=== PATIENT | female | born 2000 | race African-American/Black ===

== ENCOUNTER 2022-06-12 17:25 | Emergency (ER) | payer BC ==
[2022-06-12 18:34] LABS: #Eosinphils 0.1 10x3/uL (0.0-0.5); #Monocytes 0.7 10x3/uL (0.0-1.1); #Neutrophils 4.2 10x3/uL (1.5-8.4); %Basophils 0.3 % (0.0-2.0); %Eosinophils 1.7 % (0.0-6.0); %Lymphocytes 29.5 % (18.0-47.0); %Monocytes 10.3 % (0.0-10.0); %Neutrophils 57.9 % (40.0-75.0); Hemoglobin 11.9 g/dL (12.0-15.5); Mean Corpuscular HGB CONC 34.2 g/dL (32.0-36.0); Mean Corpuscular Hemoglobin 31.1 pg (27.0-33.0); Mean Corpuscular Volume 90.9 fl (81.6-98.3); Mean Platelet Volume 10.4 fl (7.4-10.4); Platelet Count 294 10x3/uL (150-450); RBC Distribution Width 13.6 % (11.5-14.5); Red Blood Cell (RBC) Count 3.83 10x6/uL (3.90-5.03); White Blood Cell (WBC) Count 7.2 10x3/uL (3.5-10.5)
[2022-06-12 18:35] LABS: Bilirubin Neg (Negative); Blood, Urine Negative (Negative); Clarity Clear (Clear); Glucose, Urine (Dipstick) Normal (Negative); Ketone, Urine Negative (Negative); Leukocyte 25 (Negative); Nitrite Negative (Negative); Protein, Urine (Dipstick) Negative (Neg-Trace); Urobilinogen Normal mg/dL (Less than 2)
[2022-06-12 18:36] LABS: Pregnancy Test - Urine (BHCG) Negative (Negative); Pregu Control Background? CLEAR/WHITE (CLR/WHITE); Pregu Control Bar Appear? YES (CONTROL BAR)
[2022-06-12 18:51] LABS: ALT (SGPT) 12 U/L (8-55); AST (SGOT) 18 U/L (5-34); Albumin 4.3 g/dL (3.5-5.0); Alkaline Phosphatase 59 U/L (40-110); Anion Gap 15 mmol/L (10-20); BUN (Urea Nitrogen) 11 mg/dL (7.0-18.7); Bilirubin, Total 0.3 mg/dL (0.2-1.2); Calc. Creatinine Clearance 0 mL/min (70-130); Calcium 9.2 mg/dL (7.8-10.44); Carbon Dioxide 21 mmol/L (22-29); Chloride 107 mmol/L (98-107); Estimated GFR 121; Globulin 3.5 g/dL (2.4-3.5); Glucose 93 mg/dL (70-105); Lipase 21 U/L (8-78); Potassium 3.8 mmol/L (3.5-5.1); Protein, Total 7.8 g/dL (6.0-8.3); Sodium 139 mmol/L (136-145)
[2022-06-12 18:51] LABS: Bacteria/HPF 1+ HPF (None Seen); RBC/HPF 0-3 HPF (0-3); WBC/HPF 0-3 HPF (0-3)
[2022-06-12] MEDS ORDERED: Acetaminophen 500 MG TAB ONE (19:15)
== END 2022-06-12 20:17 | disposition home or self-care (01) ==
LOC: CSHERS 17:25
DX: J18.9 Pneumonia, unspecified organism (principal); R10.11 Right upper quadrant pain
CPT/HCPCS: 36415; 71045; 80053; 81003; 81015; 81025; 83690; 85025

== ENCOUNTER 2022-12-03 21:01 | Emergency (ER) | payer BC | END 2022-12-04 00:07 | disposition home or self-care (01) | LOC: CSHERS 21:01 | DX: J20.9 Acute bronchitis, unspecified (principal) | CPT/HCPCS: 71045 ==

== ENCOUNTER 2023-06-01 15:44 | Emergency (ER) | payer BC ==
[2023-06-01] MEDS ORDERED: Lidocaine 1% (PF) 30 ML VIAL ONE (16:21)
[2023-06-01] MEDS ORDERED: Bacitracin 1 PK ONE (18:12)
== END 2023-06-01 18:18 | disposition home or self-care (01) ==
LOC: CSHERS 15:44
DX: S61.011A Laceration without foreign body of right thumb without damage to nail, initial encounter (principal); W26.0XXA Contact with knife, initial encounter; Y93.G1 Activity, food preparation and clean up
CPT/HCPCS: 12001; 99282; J2001

== ENCOUNTER 2023-06-14 12:18 | Emergency (ER) | payer BC | END 2023-06-14 13:08 | LOC: CSHERS 12:18 | DX: Z53.21 Procedure and treatment not carried out due to patient leaving prior to being seen by health care provider (principal) ==